=== PATIENT | female | born 1985 | race African-American/Black ===

== ENCOUNTER → 2021-06-18 15:12 | Outpatient (CLI) | payer BC, SELFPAY ==
--- NOTE | ~2021-06-18 | US_ITS ---
US pelvic complete w TV DATE: 06/18/2021 15:39 INDICATION: Frequent excessive menstruation TECHNIQUE: Real-time imaging via transabdominal and transvaginal approaches COMPARISON: None FINDINGS: The retroverted uterus measures 8.4 centers height, 5.1 cm anteroposterior and 5.6 cm trans verse dimension. The central endometrial echo measures 10 mm AP dimension. There are multiple probable 2 cm uterine fibroid. Right ovary measures 2.3 x 1.5 x 2.2 cm, with vascular flow. Left ovary measures 2.6 x 1.7 x 3.3 cm, with vascular flow. There is a left ovarian 1.7 cm follicle. Mild free fluid in the left adnexal area. IMPRESSION: 1.7 cm left ovarian cyst, mild free fluid in the left adnexal area Fibroid change of retroverted uterus Reviewed, dictated and finalized at [facility] Reviewed, dictated and finalized at [facility].
== END ==
PROVIDERS: PCP Hospitalist; Visit Provider Nurse Practitioner
DX: N92.0 Excessive and frequent menstruation with regular cycle (principal); N83.202 Unspecified ovarian cyst, left side
CPT/HCPCS: 76830; 76856

== ENCOUNTER 2021-09-06 00:44 | Day surgery (SDC) | payer BC, SELFPAY ==
[2021-09-03 14:40] VITALS: BMI 25.0
--- NOTE | 2021-09-03 14:45 | PC.NURSE ---
Report to the Outpatient Waiting Room, entrance under the green pavilion located off [facility], at time 1300___ on date 09-06-2021. OR Time: _1500___. - You and your visitor will be asked a series of questions to screen for COVID 19 for your protection. - A mask is required within the hospital. - Only one visitor is allowed at this time. Patient visitors will be guided where to wait when not with patient. Preoperative COVID Testing Requirements: No COVID Test needed if: (proof is required; if not received patient will have Rapid Test prior to entry) - Patient has received COVID Vaccine at least 14 days prior to procedure date or - Patient has positive COVID test result within last 90 days of surgery date. COVID Test needed if above criteria is not met If not COVID vaccinated a COVID test must be conducted within 72 hours of surgery and patient is asked to isolate self from time of testing until procedure. You will go to the [facility] for your COVID testing. The [facility] site is located at the corner of [address] [facility]. You will only be called if COVID results are positive and your surgeon may reschedule your elective surgery date. Patients may have clear liquids (water, carbonated beverages, clear teas, apple juice) until 3 hours prior to surgery with a maximum of 20 ounces. - No food from midnight until time of surgery - Infants may have breast milk until 4 hours before surgery, formula 6 hours prior to surgery. - Children will be allowed to drink immediately following surgery. If applicable, please bring a bottle or sippy cup to assist with drinking. Juice, water, soda, and popsicles are readily available. For infants on formula, please bring formula the day of surgery. Pacifiers are allowed. Take the following medications with a SIP of water the morning of surgery: Medications to discontinue per physician Date to take last dose Please no make-up, nail bulgarian, hairspray, perfume, deodorant, or body powder the day of surgery. No jewelry (including any body piercings) or valuables the day of surgery, leave them at home. Please take a shower or bath the night before, or the morning of, surgery with an antibacterial soap. Wear comfortable, loose fitting clothing. Children are encouraged to wear pajamas. - Jewelry must be removed prior to entering the operating room. Rings and piercings that are not removed may be cut off. - The hospital will not accept responsibility for valuables. - Please leave all valuables, including medications, at home the day of surgery. If you are going home after surgery, a licensed local company tanker driver must drive you home. - NO public transportation without another adult. - We recommend that an adult stay with you for 24 hours following discharge. - We also recommend that you do not drive, make important decision, drink alcoholic beverages, or take any drugs that were not prescribed by your health care provider for at least 24 hours after your discharge time. For Pediatric surgeries, we recommend two adults accompany the child home (only one inside the building at this time). Follow any additional instructions given to you from your surgeon. Telephone instructions given to _Regina Schulte__and asked if any additional questions and then verbalized understanding. Patient advised to call surgeon office or pre surgery nurse liaison [phone] if any additional questions.
--- NOTE | 2021-09-05 14:48 | WPDANESEPPF ---
Anes - Initial Pre Proc Eval Procedure: Operation Date: 09/06/21 15:00 Proposed Procedures p Hysteroscopy Dilation and Curettage - Patrick Roth MD Date/Time: 09/05/21 14:48 Surgeon: Patrick Roth MD Pre Op Diagnosis: menorrhagia, fibroids Patient Data Age: 36 Gender: F Height: 1.68 m Weight: 70.5 kg Allergies Allergy/AdvReac Type Severity Reaction Status Date / Time No Known Allergies Allergy Unverified 09/06/21 13:15 Home Medications Medication Instructions Recorded Confirmed Type No Home Medications 09/03/21 09/06/21 History Patient hx anesthesia problems: none Family hx anesthesia problems: none Results Review: All pre-operative results and documents have been reviewed as part of the pre-operative evaluation. [facility] Past Medical History Medical History Abnormal uterine bleeding Social History Social History Smoking status: Never smoker Alcohol intake: current Spiritual care concerns: No Anes - Eval Final PreProcedure Day of Procedure 09/05/21 14:48 Patient weight: normal Heart: regular rate and rhythm Lungs: clear to auscultation and normal air movement Airway: Mallampati scale class II Neurological: alert and oriented Last oral intake: >/= 8 hours ASA classification: I Emergent: no Anesthetic plan: proceed Anesthesia type and monitoring: general GIVS Results Review: All pre-operative results and documents have been reviewed as part of the pre-operative evaluation. Informed Consent: The patient's anesthetic plan and its attendant risks and benefits were discussed with the patient/family/POA. Questions were solicited and answers provided to the satisfaction of the patient/family/POA.
--- NOTE | 2021-09-06 11:41 | P.HP_ITS ---
History of Present Illness History of Present Illness Consent: Risks, benefits, and alternatives have been discussed and questions answered. Patient agrees to proceed with procedure. Chief complaint: menorrhagia, fibroids Narrative: Regina Schulte is a 36 year old female A2 with history of heavy cycles. Patient reports fatigue and passing large clots with cycles. Review of Systems Constitutional: Constitutional: Reports fatigue and Reports lethargy PMFSH Past Medical History Medical History Abnormal uterine bleeding Social History Social History Smoking status: Never smoker Alcohol intake: current Spiritual care concerns: No Meds Home Medications and Allergies Home Medications Medication Instructions Recorded Confirmed Type No Home Medications 09/03/21 09/03/21 History Allergies Allergy/AdvReac Type Severity Reaction Status Date / Time No Known Allergies Allergy Unverified 09/03/21 14:39 Exam Const: Orientation/consciousness: patient oriented x3 Resp: Effort & Inspection: normal respiratory effort Auscultation: clear to auscultation bilaterally Cardio: Rate: regular rate Rhythm: regular rhythm Heart sounds: S1 norm al heart sound present and S2 normal heart sound present GI: Auscultation: normal bowel sounds : Speculum Exam - Vagina: normal appearance of the vagina Speculum Exam - Cervix: normal appearance of the cervix Assessment and Plan Assessment and plan (1) Abnormal uterine bleeding: Code(s): N93.9 - Abnormal uterine and vaginal bleeding, unspecified Status: Acute Assessment and Plan: scheduled for hystescopy with dilation and curettage. Risk and benefits reviewed with patient in detail.
[2021-09-06 13:22] VITALS: BP 175/93; PULSE 79; RESP 16; TEMP 37.1; O2SAT 100
[2021-09-06] MEDS: LACTATED RINGERS 1,000 ML 30 ML IV CONT (13:44)
--- NOTE | 2021-09-06 15:13 | WPDHPUPDATE1 ---
History and Physical Update Update Date/Time: 09/06/21 15:13 History and Physical has been reviewed, including an updated exam of the patient. There are NO changes in the patient's condition. Risks, benefits, and alternatives have been discussed and questions answered. Patient agrees to proceed with procedure.
[2021-09-06 16:22] VITALS: BP 160/101; PULSE 82; RESP 14
[2021-09-06] MEDS: KETOROLAC 30 MG/ML VIAL (*BKC) IV PUSH (16:29)
[2021-09-06 16:50] VITALS: BP 172/101; PULSE 58; RESP 20
--- NOTE | 2021-09-06 16:53 | W.PM.PROC2 ---
Procedure Note - Detailed Date of Procedure 09/09/21 Pre-op Diagnosis menorrhagia, fibroids Post-op Diagnosis same Procedure Performed hysteroscopy dilation and curettage with myosure Surgeon Partick Roth MD Anesthesia MAC and local Findings anterior and posterior fibroids Description of Procedure patient was taken to operating room with iv running she was prepared and draped in a sterile fashion and placed in a lithotomy position. abivalve speculum was placed. Tenaculum was placed on anterior lip of cervix and sounded to 10 cm . cervix was dilated to 8cm. hysteroscope performed and noted an anterior and posterior fibroid. myosure was introduced and fibroids resected. the hysteroscope removed and a curretage was performed in all four quadrants. the instruments were removed and hemostasis was assured. Estimated Blood Loss 10 Drains No Packing No Pathology yes Complications None Condition stable Disposition PACU
[2021-09-06 17:15] VITALS: BP 179/98; PULSE 62; RESP 20
== END 2021-09-06 17:26 | disposition home or self-care (01) ==
PROVIDERS: PCP Hospitalist; Visit Provider Obstetrics & Gynecology
PROC: 0U5B8ZZ Destruction of Endometrium, Via Natural or Artificial Opening Endoscopic (ICD-10-PCS; CPT 58563; principal; 2021-09-06 15:00)
DX: N92.0 Excessive and frequent menstruation with regular cycle (principal); N93.9 Abnormal uterine and vaginal bleeding, unspecified; D25.0 Submucous leiomyoma of uterus; R53.83 Other fatigue
CPT/HCPCS: 58561; 88305; A9270; J1885; J2250; J2704; J3010; J7030; J7120

== ENCOUNTER 2023-01-02 17:03 | Emergency (ER) | payer OTHER, SELFPAY ==
--- NOTE | ~2023-01-02 | XR_ITS ---
EXAMINATION: XR chest 2V DATE: 01/02/2023 17:53 INDICATION: Hypertension TECHNIQUE: PA and lateral views of the chest were obtained. COMPARISON: None FINDINGS: The lungs are clear with no focal airspace opacities, pulmonary edema, pleural effusion or pneumothor ax. The cardiomediastinal silhouette is normal. Visualized bones and soft tissues are unremarkable. IMPRESSION: 1. No acute cardiopulmonary disease. Reviewed, dictated and finalized at [facility]. [facility]
[2023-01-02 17:16] VITALS: BP 174/118; PULSE 60; RESP 20; TEMP 36.4; O2SAT 100
--- NOTE | 2023-01-02 17:18 | ECG_ITS ---
Measurements Intervals [place] Rate: 63 P: 35 [place]: 169 QRS: 36 QRSD: 86 T: 37 QT: 393 QTc: 405 Interpretive Statements SINUS RHYTHM NORMAL ECG NO PREVIOUS ECG AVAILABLE FOR COMPARISON Electronically Signed On 01-02-2023 21:01:06 DICTATING MACHINE TYPIST by Mathew Friedman D.O.
[2023-01-02 17:46] LABS: Basophils Absolute Auto 0.1 K/mm3 (0.0-0.1); Basophils Percent Auto 0.9 % (0.2-1.2); Eosinophils Absolute Auto 0.1 K/mm3 (0-0.3); Eosinophils Percent Auto 1.7 % (0-4.4); Hematocrit 36.9 % (37.0-47.0); Immature Granulocyte Absolute 0.01 K/mm3 (0.00-0.031); Immature Granulocyte Percent A 0.2 % (0-0.5); Lymphocytes Absolute Auto 1.99 K/mm3 (0.9-3.2); Lymphocytes Percent Auto 30.4 % (18.3-44.2); Mean Corpuscular HGB Conc 32.5 g/dl (32-36); Mean Corpuscular Hemoglobin 29.1 pg (26-34); Mean Corpuscular Volume 89.3 fl (80-100); Mean Platelet Volume 10.4 fl (7.4-10.4); Monocytes Absolute Auto 0.5 K/mm3 (0.1-0.6); Monocytes Percent Auto 8.2 % (2.6-8.5); Neutrophils Absolute Auto 3.8 K/mm3 (1.3-6.7); Neutrophils Percent Auto 58.6 % (45.5-73.1); Platelet Count Result 265 k/mm3 (150-375); Red Blood Count 4.13 M/mm3 (4.2-5.4); Red Cell Distribution Width 14.1 % (11.5-14.5); White Blood Count 6.6 K/mm3 (4.5-10.0)
[2023-01-02 18:00] LABS: INR 1.1; Prothrombin Time 13.3 Seconds (11.1-14.7)
[2023-01-02 18:01] LABS: Partial Thromboplastin Time 30.6 SECONDS (22.3-36.8)
[2023-01-02 18:02] LABS: Alanine Aminotransferase 30 U/L (6-35); Albumin Level 4.7 g/dL (3.5-5.1); Alkaline Phosphatase 84 U/L (38-126); Anion Gap 8 mmol/L (8-16); Aspartate Amino Transferase 33 U/L (14-36); Bilirubin,Total 0.5 mg/dL (0.2-1.3); Blood Urea Nitrogen 10 mg/dL (7-17); Calcium 9.3 mg/dL (8.4-10.2); Carbon Dioxide 26 mmol/L (22-30); Chloride 101 mmol/L (98-107); Estimated CRCL calculation 91 ml/min; Estimated Glomerular Filt Rate > 60; Glucose 92 mg/dL (65-110); Lipase 63 U/L (23-300); Potassium 3.5 mmol/L (3.4-5.0); Sodium 135 mmol/L (137-145)
[2023-01-02 18:10] LABS: Troponin I < 0.012 ng/mL (0.000-0.034)
[2023-01-02 18:48] VITALS: BP 160/97; PULSE 66; RESP 16; RESP 18; O2SAT 100
--- NOTE | 2023-01-02 19:04 | ED.GENADULT ---
HPI - General Adult General Chief complaint: Recheck/Abnormal Lab/Rx Stated complaint: hypertension Time Seen by Provider: 01/02/23 17:51 Source: patient Mode of arrival: ambulatory Limitations: no limitations History of Present Illness HPI narrative: Patient is a 37-year-old female who presents the ED with report of hypertension. 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 BP 190s systolic over 90s-100s diastolic. Patient then contacted her primary care doctor and was referred to the ED for further evaluation. Patient denies history of hypertension. She states her blood pressure was last checked last January at her annual appointment and was normal at that time. She does note a family history of hypertension on her mother's side. Patient also notes she has been under significant stress over the last several months with working and currently living away from her family in [place]. She has otherwise been asymptomatic. She denies any recent chest pain, difficulty breathing, headache, vision changes, numbness, weakness, nausea, vomiting, abdominal pain. Related Data Allergies Allergy/AdvReac Type Severity Reaction Status Date / Time No Known Allergies Allergy Unverified 09/06/21 13:15 Review of Systems Review of Systems: CONSTITUTIONAL: Denies fever, chills, or sweats. EYES: Denies visual changes. ENT: Denies rhinorrhea, congestion, sore throat. CARDIOVASCULAR: Denies chest pain, palpitations, or edema. RESPIRATORY: Denies cough or dyspnea. GASTROINTESTINAL: Denies abdominal pain, nausea, vomiting. MUSCULOSKELETAL: Denies back pain, joint pain, or myalgia. NEUROLOGIC: Denies headache, numbness, or weakness. All systems reviewed & are unremarkable except as noted in HPI and below PMFSH Past Medical History Medical History Abnormal uterine bleeding Anxiety Surgical History Surgical History No pertinent past surgical history Social History Social History Smoking status: Never smoker Alcohol intake: current Spiritual care concerns: No Exam Narrative: GENERAL: Well appearing, well-nourished, non-toxic, in no acute distress. HEAD: Normocephalic, atraumatic. EYES: PERRLA/EOMI, conjunctiva clear. NECK: Supple. No adenopathy, no masses. RESPIRATORY: Airway patent, respirations nonlabored. Clear to auscultation bilaterally, no rales, rhonchi, wheezing. CARDIOVASCULAR: Regular rate and rhythm without murmurs, rubs, or gallops. Radial pulses 2+ and equal bilaterally. ABDOMINAL: Soft, nontender, nondistended, no hepatosplenomegaly. Normoactive BS. MUSCULOSKELETAL: Moves all extremities. Strength/ROM intact without gross deformities. No edema. SKIN: Warm, dry, normal color. No rashes. NEURO: A&O X3. Speech clear. Cranial nerves II-XII grossly intact. Steady gait. No ataxic movements. No focal deficits. Strength 5/5 in upper and lower extremities bilaterally PSYCHIATRIC: Appropriate mood and affect. Normal interaction. Course Vital Signs Vital signs: Vital Signs Temperature 97.6 F 01/02/23 17:16 Pulse Rate 60 01/02/23 17:16 Respiratory Rate 20 01/02/23 17:16 Blood Pressure 174/118 H 01/02/23 17:16 Pulse Oximetry 100 01/02/23 17:16 Oxygen Delivery Room Air 01/02/23 17:16 Temperature 97.6 F 01/02/23 17:16 Pulse Rate 75 01/02/23 20:01 Respiratory Rate 16 01/02/23 20:01 Blood Pressure 151/83 H 01/02/23 20:01 Pulse Oximetry 100 01/02/23 20:01 Oxygen Delivery Room Air 01/02/23 17:16 Medical Decision Making [facility] Narrative Medical decision making narrative: Patient presented to ED with report of elevated blood pressures at a routine physical today, no history of hypertension. Under increased stress recen
[2023-01-02] MEDS: amLODIPine BESYLATE 5 MG TABLET PO (19:24)
[2023-01-02 20:01] VITALS: BP 151/83; PULSE 75; RESP 16; O2SAT 100
== END 2023-01-02 20:01 | disposition home or self-care (01) ==
PROVIDERS: Emergency Medicine; Emergency Provider Physician Assistant; PCP Hospitalist
DX: I10 Essential (primary) hypertension (principal); F41.9 Anxiety disorder, unspecified
CPT/HCPCS: 36415; 71046; 80053; 83690; 84484; 85025; 85610; 85730; 93005; 99283; A9270